=== PATIENT | female | born 1965 | race Caucasian/White ===

== ENCOUNTER 2018-08-04 10:39 | Emergency (ER) | payer MEDICAID ==
[~2018-08-04] VITALS: Ht 165.1 cm; Wt 90.7 kg
[2018-08-04 10:40] VITALS: BP_SYST 147
--- NOTE | 2018-08-04 10:40 | NUR ---
TRIAGED AND BROUGHT BACK TO BED #3, REPORT GIVEN TO WALLY
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
[2018-08-04] MEDS ORDERED: DIPH-TET-PERTUS Vaccine 0.5 ML VIAL (ADACEL) I.M. ONE (11:45)
--- NOTE | 2018-08-04 12:00 | NUR ---
[facility] arrived and is at bedside to interview pt.
--- NOTE | 2018-08-04 12:45 | NUR ---
[employer] at bedside speaking with pt.
[2018-08-04] MEDS ORDERED: BACITRACIN 1 GM OINT TP ONE (13:19)
[2018-08-04 13:34] VITALS: BP_SYST 147
--- NOTE | 2018-08-04 13:34 | NUR ---
Patient given written and verbal discharge instructions and verbalizes understanding. ER MD discussed with patient the results and treatment provided. Patient in stable condition. ID arm band removed. Patient educated on pain management and to follow up with PMD. Pain Scale 0/10. Opportunity for questions provided and answered.
== END 2018-08-04 13:34 | disposition home or self-care (01) ==
LOC: SED 10:39
DX: S20.219A Contusion of unspecified front wall of thorax, initial encounter (principal); S60.222A Contusion of left hand, initial encounter; S60.221A Contusion of right hand, initial encounter; R03.0 Elevated blood-pressure reading, without diagnosis of hypertension; Z88.0 Allergy status to penicillin; Y04.0XXA Assault by unarmed brawl or fight, initial encounter; Y93.89 Activity, other specified; Y92.89 Other specified places as the place of occurrence of the external cause; Y99.8 Other external cause status
CPT/HCPCS: 71045; 90715; 99284

== ENCOUNTER 2018-08-08 18:56 | Emergency (ER) | payer MEDICAID ==
[~2018-08-08] VITALS: Ht 165.1 cm; Wt 90.7 kg
[2018-08-08 19:01] VITALS: BP_SYST 155
[2018-08-08] MEDS ORDERED: LIDOCAINE/EPI 2% 1:100000 20 ML VIAL INJ ONE (19:30)
[2018-08-08] MEDS ORDERED: CLINDAMYCIN PHOSPHATE 300 MG/2 ML VIAL IM ONE (19:30)
[2018-08-08] MEDS ORDERED: IBUPROFEN 800 MG TABLET PO ONE (19:30)
[2018-08-08] MEDS ORDERED: SODIUM BICARBONATE 8.4% VIAL 50 MEQ/50 ML VIAL INJ ONE (19:30)
[2018-08-08] MEDS ORDERED: CLINDAMYCIN HCL 150 MG CAPSULE PO ONE (19:45)
[2018-08-08 21:10] VITALS: BP_SYST 134
== END 2018-08-08 21:10 | disposition home or self-care (01) ==
LOC: SED 18:56
DX: L02.415 Cutaneous abscess of right lower limb (principal); R03.0 Elevated blood-pressure reading, without diagnosis of hypertension; Z88.0 Allergy status to penicillin
CPT/HCPCS: 87070-TC; 87186-TC; 99283; 99284